=== PATIENT | female | born 1970 | race Caucasian/White ===

== ENCOUNTER 2016-07-13 14:25 | Emergency (ER) ==
[2016-07-13 14:39] VITALS: BP 100/64; TEMP 99.2; BMI 19.5
[2016-07-13] MEDS ORDERED: ZOFRAN 4 MG/2 ML IVP STA (14:45)
[2016-07-13] MEDS ORDERED: BENTYL IM STA (14:46)
--- NOTE | 2016-07-13 14:46 | ED.PDOC ---
General ED Provider: Dr. GERBER MAGALLANES JR Chief Complaint: Kidney Stone Stated Complaint: woke up tues with left flank pain--ct scan done with kidney stones to both kidneys--travelling for emergency visit due to family illness-- pain has returned--has pain meds prescribed and advised by md if pain increases to stop by nearest er--has pain to rt flank [ End ]0445 99.2 66 20 98% 100/64 Time Seen by Physician: 14:45 Mode of Arrival: Wheelchair Information Source: Patient, Family Exam Limitations: No limitations Nursing and Triage Documentation Reviewed and Agree: No Review of Systems - Review Of Systems Constitutional: Reports: Malaise Eyes: Reports: No symptoms Ears, Nose, Mouth, Throat: Reports: No symptoms Respiratory: Reports: No symptoms Cardiac: Reports: No symptoms GI: Reports: Abdominal pain : Reports: Flank pain (right flank pain), Urgency Musculoskeletal: Reports: No symptoms Skin: Reports: No symptoms Neurological: Reports: No symptoms Endocrine: Reports: No symptoms Hematologic/Lymphatic: Reports: No symptoms All Other Systems: Other Past Medical History - Past Medical History Endocrine: Reports: None Cardiovascular: Reports: None Respiratory: Reports: None Hematological: Reports: None Gastrointestinal: Reports: Other (ibs ) Genitourinary: Reports: Kidney stones, Other (pelvic floor muscle tension on frequent stool softeners and precautionss) Neuro/Psych: Reports: None Musculoskeletal: Reports: None Cancer: Reports: None Last Menstrual Period: now - Surgical History General Surgical History: Reports: Hernia Repair (rectal prolapse) - Family History Family History: Reports: Unknown - Social History Smoking Status: Never smoker Hx Substance Use: No Alcohol Screening: None Physical Exam - Physical Exam Appearance: Well-appearing, Thin Pain Distress: Mild Eyes: MALLY, EOMI, Conjunctiva clear ENT: Ears normal, Nose normal, Oropharynx normal Neck: Supple Respiratory: Airway patent, Breath sounds clear, Breath sounds equal, Respirations nonlabored Cardiovascular: RRR, Pulses normal, No rub, No murmur GI/: Soft, Tender (right abdomen) Musculoskeletal: Normal strength, ROM intact, No edema, No calf tenderness Skin: Warm, Dry, Normal color Neurological: Sensation intact, Motor intact, Reflexes intact, Cranial nerves intact, Alert, Oriented Psychiatric: Affect appropriate, Mood appropriate Critical Care Note - Critical Care Note Total Time (mins): 0 Course - Course Hematology/Chemistry: 04/18/17 14:58 07/13/16 14:58 Orders, Labs, Meds: Lab Review 07/13/16 07/13/16 14:58 15:05 WBC 11.97 H RBC 4.34 Hgb 13.5 Hct 38.6 MCV 88.9 MCH 31.1 H MCHC 35.0 RDW Coeff of Hannah 12.4 Plt Count 175 Immature Gran % (Auto) 0.3 Neut % (Auto) 87.8 Lymph % (Auto) 5.2 L [place] % (Auto) 6.4 Eos % (Auto) 0.0 Baso % (Auto) 0.3 Immature Gran # (Auto) 0.0 Neut # 10.5 H Lymph # 0.6 [place] # 0.8 Eos # 0.0 Baso # 0.0 Sodium 138 Potassium 3.6 Chloride 102 Carbon Dioxide 22 Anion Gap 17.6 BUN 13 Creatinine 0.94 Estimated GFR (MDRD) 65.00 BUN/Creatinine Ratio 13.82 Glucose 100 Calcium 9.4 Total Bilirubin 1.07 AST 23 ALT 19 Alkaline Phosphatase 54 Total Protein 7.4 Albumin 4.4 Globulin 3.0 Albumin/Globulin Ratio 1.47 Amylase 96 Lipase 84 H Urine Color Dark Urine Clarity Slightly Urine pH >=9.0 Ur Specific [place] 1.015 Urine Protein 2+ Urine Glucose (UA) Trace Urine Ketones 4+ Urine Blood Trace-intact Urine Nitrite Negative Urine Bilirubin Negative Urine Urobilinogen 1.0 Ur Leukocyte Esterase Negative Ur Squamous Epith Cells Not present Amorphous Sediment 2+ Orders Category Date Time Status ED IV/MEDIPORT/POWERPORT .ONCE EMERGENCY 07/13/16 14:45 Active AMYLASE Stat LAB 07/13/16 14:58 Completed CBC W/ AUTO DIFF Stat LAB 07/13/16 14:58 Completed COMPREHENSIVE METABOLIC PANEL Stat LAB 07/13/16 14:58 Completed LIPASE Stat LAB 07/13/16 14:58 Completed URINALYSIS C & S IF INDICATED Stat LAB 07/13/16 15:05 Completed 0.9 % Sodium Chloride [Saline Flush] MEDS 07/13/16 14:45 Discontinued 1 syr IVF PRN PRN Ondansetron HCl/Pf [Zofran 4 mg/2 ml] MEDS 07/13/16 14:45 Discontinued 4 mg IVP ONCE STA CT ABDOMEN/PELVIS WO CONTRAST Stat RADS 07/13/16 14:45 Completed Medications Discontinued Medications Generic Name Dose Route Start Last Admin Trade Name Bryceq PRN Reason Stop Dose Admin Ondansetron HCl 4 mg 07/13/16 14:45 07/13/16 15:36 Zofran 4 Mg/2 Ml IVP 07/13/16 14:46 4 mg ONCE STA Administration Sodium Chloride 1 syr 07/13/16 14:45 07/13/16 15:34 Saline Flush IVF 1 syr PRN PRN Administration To flush IV Vital Signs: Temp Pulse Resp BP Pulse Ox 07/13/16 14:26 99.2 F 66 20 100/64 98 Departure - Departure Time of Disposition: 16:36 Disposition: HOME SELF-CARE Discharge Problem: Kidney stone Instructions: Kidney Stones (ED), Renal Colic (ED), How to Strain Your Urine ( ED) Condition: Good Pt referred to PMD for follow-up: Yes Additional Instructions: continue to keep hydrated stone in right ureter should pass may continue pain medication as prescribed may use bentyl for spasms return if fever over 101.0 recommend urology follow up follow up with PMD 1-2 weeks Prescriptions: Dicyclomine HCl [Bentyl] 10 mg PO TID PRN #20 capsule PRN Reason: Abdominal Pain Ondansetron HCl [Zofran Tab] 4 mg PO QID PRN #12 tablet PRN Reason: Nausea / Vomiting Allergies/Adverse Reactions: Allergies Penicillins Adverse Reaction (Verified 07/13/16 14:39) Sulfa (Sulfonamide Antibiotics) Adverse Reaction (Verified 07/13/16 14:39) anti-infammatory drugs Adverse Reaction (Uncoded 07/13/16 14:39) Home Medications: Ambulatory Orders Baclofen 30 mg RC QID 07/13/16 Clobetasol Propionate 10.5 gm TP DIRECTED 07/13/16 Dicyclomine HCl [Bentyl] 10 mg PO TID PRN #20 capsule 07/13/16 Lubiprostone [Amitiza] 24 mcg PO BID 07/13/16 Ondansetron HCl [Zofran Tab] 4 mg PO QID PRN #12 tablet 07/13/16 Ondansetron [Zuplenz] 4 mg PO TID PRN 07/13/16 Oxycodone-Acetaminophe 7.5-325 [Percocet 7.5-325] 1 tab PO Q4H PRN 07/13/16 Polyethylene Glycol 3350 [Miralax] 17 gm PO DAILY 07/13/16 Solifenacin Succinate [Vesicare] 5 mg PO DAILY 07/13/16
[2016-07-13 15:01] LABS: BASOPHILS % (AUTO) 0.3 % (0.0-3.0); HEMATOCRIT 38.6 % (37.0-47.0); HEMOGLOBIN 13.5 g/dl (12.0-16.0); IMMATURE GRANULOCYTE % (AUTO) 0.3 % (0.0-5.0); LYMPHOCYTES # (AUTO) 0.6 K/uL (0.60-3.4); LYMPHOCYTES % (AUTO) 5.2 (10.0-50.0); MEAN CORPUSCULAR HEMOGLOBIN 31.1 pg (27.0-31.0); MEAN CORPUSCULAR VOLUME 88.9 fl (81.0-99.0); MONOCYTES # (AUTO) 0.8 K/uL (0.4-2.0); MONOCYTES % (AUTO) 6.4 (0-10); NEUTROPHILS # (AUTO) 10.5 K/ul (2.0-6.9); NEUTROPHILS % (AUTO) 87.8; PLATELET COUNT 175 10^3/uL (140-440); RED BLOOD COUNT 4.34 10^6/ul (4.20-5.40); WHITE BLOOD COUNT 11.97 K/ul (4.6-10.2)
[2016-07-13 15:20] LABS: ALBUMIN 4.4 g/dL (3.4-5.0); ALBUMIN/GLOBULIN RATIO 1.47; ANION GAP 17.6; BILIRUBIN,TOTAL 1.07 mg/dL (0.00-1.20); BUN/CREATININE RATIO 13.82; CALCIUM 9.4 mg/dL (8.2-10.2); CREATININE 0.94 mg/dL (0.60-1.30); POTASSIUM 3.6 mmol/L (3.5-5.10); TOTAL PROTEIN 7.4 g/dL (6.4-8.2)
--- NOTE | 2016-07-13 15:45 | CT ---
Exam: Noncontrast CT examination of the abdomen pelvis. Comparison: None available. Reason for exam: Abdominal pain. FINDINGS: No pneumothorax or pleural effusion is seen within the partially imaged lung bases. Image interpretation is limited by the lack of intravenous contrast administration. The liver, gallbladder, spleen, adrenal glands, and pancreas are grossly unremarkable. The left kidney is unremarkable with small nonobstructive nephrolithiasis. No hydronephrosis or hyd roureter. There is mild right-sided hydronephrosis with hydroureter and nephrolithiasis. There is a 2 mm ston e is seen in the right ureterovesicular junction with surrounding hydroureter. No intra-abdominal free air or pelvic free fluid. No focal small bowel dilatation or transition point. The appendix is not well seen. No osteoblasti c or osteolytic lesion. Impression: 1. 2 mm stone at the right ureterovesicular junction with mild hydronephrosis and hydroureter. 2. No other acute inflammatory findings are seen in the abdomen or pelvis.
[2016-07-13 16:07] LABS: BILIRUBIN,URINE Negative (NEGATIVE); KETONES,URINE 4+ (NEGATIVE); LEUKOCYTE ESTERASE ,URINE Negative (NEGATIVE); NITRITE,URINE Negative (NEGATIVE); PH,URINE >=9.0 (5-9); PROTEIN,URINE 2+ (NEGATIVE); URINE, BLOOD Trace-intact (NEGATIVE)
[2016-07-13 16:14] LABS: ADD URINE MICROSCOPIC YES
== END 2016-07-13 16:58 | disposition home or self-care (01) ==
LOC: ED 14:25
DX: N20.0 Calculus of kidney (principal)
CPT/HCPCS: 36415; 80053; 81001; 82150; 83690; 85025; 96372; 96374; 99283